=== PATIENT | female | born 1975 | race Caucasian/White ===

== ENCOUNTER → 2016-11-12 | Outpatient (CLI) | payer BC, OTHER ==
[~2016-11-12] MED LIST: /ESOM40CA; No Historical Meds
--- NOTE | 2016-11-12 15:08 | REP ---
PELVIC ULTRASOUND: Real-time sonographic evaluation of the pelvis is performed utilizing transabdominal and endovaginal technique. Comparison is made with a prior study of 05/12/2012. The bladder measures 9.4 x 5.9 x 10.3 cm. The uterus measures 7.4 x 4.9 x 5.2 cm. Endometrial thickness is 15 mm. There is no endometrial fluid collection. Right ovary measures 4.7 x 2.8 x 2.4 cm and the left ovary 4.7 x 1.5 x 2.1 cm. Paraovarian cyst on the right measures 2.9 x 1.0 x 1.9 cm. This appears to have been present on the prior study of 05/12/2012 and has increased in size, previously 17 x 10 mm. No torsion is seen of either ovary with blood flow seen in the ovaries with duplex Doppler evaluation, Ri, right ovary 0.56 and left ovary 0.69. There is mild free fluid. IMPRESSION: Mild increase in size of right paraovarian cyst as discussed in detail above when compared to the prior study of 05/12/2012. Mild free fluid. No torsion. Endometrial thickness 15 mm. Signed by Geoffrey Avalos MD 11/12/2016 08:03 P
== END ==
LOC: M RAD 12:34
PROVIDERS: ATTEND Family Medicine
DX: N92.0 Excessive and frequent menstruation with regular cycle (principal); N83.201 Unspecified ovarian cyst, right side

== ENCOUNTER → 2016-12-22 | Outpatient (REF) | payer OTHER ==
[~2016-12-22] MED LIST changes: +ACYC1CAP8 PO; +EPIP0.3I2 IM; +PANT40TA2 PO
[2016-12-22 13:02] LABS: MEAN CORPUSCULAR HEMOGLOBIN 33.6 pg (27.0-33.0); MEAN CORPUSCULAR HGB CONC 33.8 g/dl (32.0-36.5); MEAN CORPUSCULAR VOLUME 99.4 fl (80.0-96.0); RED CELL DISTRIBUTION WIDTH 11.9 % (11.5-14.5); WHITE BLOOD COUNT 4.7 K/mm3 (4.0-10.0)
[2016-12-22 13:32] LABS: ALBUMIN 4.1 GM/DL (3.2-5.2); ALBUMIN/GLOBULIN RATIO 1.21 (1.00-1.93); ALKALINE PHOSPHATASE 51 U/L (45-117); ALT/SGPT 23 U/L (12-78); ANION GAP 6 MEQ/L (8-16); AST/SGOT 14 U/L (15-37); BLOOD UREA NITROGEN 14 MG/DL (7-18); CALCIUM LEVEL 9.1 MG/DL (8.5-10.1); CARBON DIOXIDE LEVEL 30 MEQ/L (21-32); CHLORIDE LEVEL 102 MEQ/L (98-107); CHOLESTEROL LEVEL 189 MG/DL (<200); CREATININE FOR GFR 0.82 MG/DL (0.55-1.02); FERRITIN 29 NG/ML (8-252); GLOMERULAR FILTRATION RATE > 60.0 (>60); GLUCOSE, FASTING 91 MG/DL (70-105); POTASSIUM SERUM 3.9 MEQ/L (3.5-5.1); SODIUM LEVEL 138 MEQ/L (136-145); TOTAL PROTEIN 7.5 GM/DL (6.4-8.2); TRIGLYCERIDES LEVEL 58 MG/DL (<150)
== END ==
LOC: M SFHCCLAY 07:36
PROVIDERS: ATTEND Family Medicine
DX: Z00.00 Encounter for general adult medical examination without abnormal findings (principal); D50.8 Other iron deficiency anemias; E55.9 Vitamin D deficiency, unspecified; Z12.4 Encounter for screening for malignant neoplasm of cervix
CPT/HCPCS: 80053; 80061; 82306; 82728; 84443; 85027; G0123

== ENCOUNTER → 2016-12-31 | Day surgery (SDC) | payer BC, OTHER ==
[~2016-12-31] VITALS: Ht 152.4 cm; Wt 61.7 kg
[~2016-12-31] MED LIST changes: -ACYC1CAP8 PO; +ACYC200C8 PO; +HYDROmorphone HCL 1 MG/ML SYRINGE (J1170) IV PRN; +KETOROLAC 60 MG/2 ML VIAL (J1885) As Ordered ONE; +LIDOCAINE 1% SDV INJ 30 ML VIAL As Ordered ONE; +LR 1,000 ML IV ONE; +LR 1,000 ML IV SCH; +MIDAZOLAM INJ 2 MG/2 ML VIAL (J2250) As Ordered ONE; +ONDANSETRON 4MG/2ML VIAL (J2405) As Ordered ONE; +ONDANSETRON 4MG/2ML VIAL (J2405) IV PRN; +PERCOCET 5MG/325MG TAB PO PRN; +PROPOFOL 200 MG/20 ML VIAL As Ordered ONE; +dexameTHASONE 4 MG/ML 1ML VIAL (J1100) As Ordered ONE; +fentaNYL 100 MCG/2 ML INJECTION (J3010) As Ordered ONE; +fentaNYL 100 MCG/2 ML INJECTION (J3010) IV PRN
[2016-12-31 10:34] LABS: CONTROL LINE UCG INT CTR LINE PRESENT
[2016-12-31 14:25] VITALS: BP 106/66
--- NOTE | 2017-01-01 09:56 | RO ---
DATE OF PROCEDURE: 12/31/2016 PREPROCEDURE DIAGNOSES: Menorrhagia. POSTPROCEDURE DIAGNOSES: Menorrhagia. OPERATIVE PROCEDURES: Hysteroscopy, dilation and curettage (D and C), NovaSure endometrial ablation. SURGEON: Bryce Lund MD [facility] CERTIFIED CONCIERGE: ANESTHESIA: Local sedation. ESTIMATED BLOOD LOSS: Minimal. FINDINGS: Normal appearing endometrial cavity. DESCRIPTION OF PROCEDURE: The patient was taken to the operating room where IV sedation was given. She was prepped and draped in a sterile fashion in the dorsal lithotomy position. A speculum was placed in the vagina. The cervix was injected circumferentially with 22 mL of 1% lidocaine. The cervix was dilated with tapered dilators. A diagnostic hysteroscope using normal saline as a distention medium was placed through the internal os. Visualization of endometrial cavity revealed the findings noted above. Sharp curettage was performed. NovaSure device was assembled and in working order. The endometrial cavity length was 4.0 cm. NovaSure device was inserted and reached a width that was calculated at 3.5 cm total. Power setting was 79 ramirez. Successful cavity assessment was performed. Coagulation cycle was started. Total coagulation time was a minute 29 seconds. Device was removed. The hysteroscope was placed back into the endometrial cavity and excellent coagulation affects were noted throughout the endometrium. No evidence of injury to uterus. All instruments were removed. Sponge, instrument and needle counts were correct.
== END ==
LOC: M SDC 09:57
PROVIDERS: ATTEND Specialist
DX: N92.0 Excessive and frequent menstruation with regular cycle (principal); K58.9 Irritable bowel syndrome, unspecified; E55.9 Vitamin D deficiency, unspecified; D64.9 Anemia, unspecified; K22.70 Barrett's esophagus without dysplasia; K90.49 Malabsorption due to intolerance, not elsewhere classified; J45.909 Unspecified asthma, uncomplicated; Z79.899 Other long term (current) drug therapy; Z88.7 Allergy status to serum and vaccine; Z91.040 Latex allergy status
CPT/HCPCS: 36415; 58563; 84703; 85014; 85018; 88305; A4649; J1100; J1885; J2250; J2405; J3010

== ENCOUNTER → 2017-12-02 | Outpatient (CLI) | payer BC, OTHER | LOC: M RAD 12:06 | DX: Z80.3 Family history of malignant neoplasm of breast (principal) | CPT/HCPCS: C8908 ==

== ENCOUNTER → 2018-04-17 | Outpatient (REF) | payer OTHER ==
[2018-04-19 08:06] LABS: HERPES ZOSTER, VARICELLA IgG >4000 index (Immune >165)
== END ==
LOC: M SFHCCLAY 11:46
DX: Z78.9 Other specified health status (principal)

== ENCOUNTER → 2018-07-20 | Outpatient (REF) | payer OTHER ==
[~2018-07-20] MED LIST changes: -HYDROmorphone HCL 1 MG/ML SYRINGE (J1170) IV PRN; -KETOROLAC 60 MG/2 ML VIAL (J1885) As Ordered ONE; -LIDOCAINE 1% SDV INJ 30 ML VIAL As Ordered ONE; -LR 1,000 ML IV ONE; -LR 1,000 ML IV SCH; -MIDAZOLAM INJ 2 MG/2 ML VIAL (J2250) As Ordered ONE; -ONDANSETRON 4MG/2ML VIAL (J2405) As Ordered ONE; -ONDANSETRON 4MG/2ML VIAL (J2405) IV PRN; -PANT40TA2 PO; +PANT40TA3 PO; -PERCOCET 5MG/325MG TAB PO PRN; -PROPOFOL 200 MG/20 ML VIAL As Ordered ONE; -dexameTHASONE 4 MG/ML 1ML VIAL (J1100) As Ordered ONE; -fentaNYL 100 MCG/2 ML INJECTION (J3010) As Ordered ONE; -fentaNYL 100 MCG/2 ML INJECTION (J3010) IV PRN
[2018-07-20 11:16] LABS: HEMATOCRIT 36.2 % (36.0-47.0); HEMOGLOBIN 12.3 g/dl (12.0-15.5); MEAN CORPUSCULAR HEMOGLOBIN 33.2 pg (27.0-33.0); MEAN CORPUSCULAR VOLUME 97.6 fl (80.0-96.0); PLATELET COUNT, AUTOMATED 186 10^3/uL (150-450); RED BLOOD COUNT 3.71 10^6/uL (4.00-5.40); WHITE BLOOD COUNT 4.1 10^3/uL (4.0-10.0)
[2018-07-20 11:34] LABS: ALBUMIN 3.7 GM/DL (3.2-5.2); ALT/SGPT 33 U/L (12-78); BILIRUBIN,TOTAL 0.9 MG/DL (0.2-1.0); BLOOD UREA NITROGEN 15 MG/DL (7-18); CALCIUM LEVEL 8.7 MG/DL (8.5-10.1); CARBON DIOXIDE LEVEL 27 MEQ/L (21-32); CHLORIDE LEVEL 103 MEQ/L (98-107); CHOLESTEROL LEVEL 169 MG/DL (<200); CHOLESTEROL RISK RATIO 2.725 (<5); CREATININE FOR GFR 0.81 MG/DL (0.55-1.30); FERRITIN 44 NG/ML (8-252); GLOMERULAR FILTRATION RATE > 60.0 (>58); GLUCOSE, FASTING 84 MG/DL (70-100); HDL CHOLESTEROL 62 MG/DL (>40); LDL CHOLESTEROL 97 MG/DL (<100); NON-HDL-C 107 MG/DL; SODIUM LEVEL 140 MEQ/L (136-145); THYROID STIMULATING HORMONE 0.968 uIU/ML (0.358-3.740); TOTAL 25(OH) VITAMIN D 36.7 NG/ML (30.0-100.0); TRIGLYCERIDES LEVEL 50 MG/DL (<150)
== END ==
LOC: M SFHCCLAY 06:59
PROVIDERS: ATTEND Family Medicine
DX: D50.8 Other iron deficiency anemias (principal); E55.9 Vitamin D deficiency, unspecified; Z00.00 Encounter for general adult medical examination without abnormal findings; K22.710 Barrett's esophagus with low grade dysplasia

== ENCOUNTER → 2018-07-21 | Outpatient (REF) | payer OTHER ==
[2018-07-21 12:42] LABS: FOLATE > 24.0 NG/ML (>5.4); VITAMIN B12 LEVEL 612 PG/ML (247-911)
== END ==
LOC: M SFHCCLAY 08:51
PROVIDERS: ATTEND Family Medicine
DX: K22.70 Barrett's esophagus without dysplasia (principal); D75.89 Other specified diseases of blood and blood-forming organs

== ENCOUNTER → 2018-12-01 | Outpatient (CLI) | payer BC, OTHER ==
[~2018-12-01] MED LIST changes: -/ESOM40CA; +NEXI1CAP3; +PROHANCE 279.3MG/ML 15ML VIAL (A9576) As Ordered ONE
--- NOTE | 2018-12-01 14:38 | REP ---
Bilateral breast MRI study without and with IV gadolinium: History: Positive family history of breast cancer. High risk screening. Comparison study December 02, 2017. Technique: 3 Tamiko MRI imaging was performed with a dedicated breast coil. Axial, coronal, and sagittal T1 and T2-weighted scans were obtained with and without fat saturation in the usual fashion. The study includes dynamically acquired post gadolinium enhanced imaging subtraction imaging. Maximal intensity projection and multiplanar re-formation imaging is included as well. The study was interpreted with the aid of [employer], an FDA approved computer-aided detection (CAD) software program, on a dedicated breast MRI work station. The gadolinium enhancement dose is 12 ml of intravenous ProHance. Findings: There are scattered small subcentimeter cysts in each breast. A small sliver of pleural fluid is visible bilaterally. There are is a moderate pattern of fibroglandular tissue present bilaterally which is roughly symmetric. There are scattered foci of background parenchymal enhancement noted bilaterally. There is an irregularly marginated area of somewhat spiculated appearing enhancing tissue in the central aspect of the right breast middle third just below the plane of the nipple at approximately 5-6 o'clock which merits further evaluation. This shows prompt contrast enhancement and washout kinetics on dynamically acquired post contrast images. The enhancement pattern is new when compared to prior study. This lesion measures 7 mm in greatest diameter. No other suspicious area of enhancement and washout is seen on dynamically acquired post contrast images. No other suspicious morphologic abnormality is seen. Impression: Suspicious somewhat spiculated 7 mm focus of enhancement and washout kinetics in the central right breast at approximately 5 -6 o'clock position. This merits further evaluation. BIRADS category four suspicious breast MRI study. Recommend focused right breast sonography to be done at [facility] in my presence or that of my partner, Dr. Avalos who is familiar with these findings. If positive, ultrasound could be utilized to perform histologic sampling. If the ultrasound does not show a correlate target, MRI directed needle biopsy can be considered. Electronically Signed by Willie Mckeon MD 12/01/2018 02:29 P
== END ==
LOC: M RAD 09:32
PROVIDERS: ATTEND Internal Medicine Hematology & Oncology
DX: R92.8 Other abnormal and inconclusive findings on diagnostic imaging of breast (principal); Z80.3 Family history of malignant neoplasm of breast
CPT/HCPCS: A9576; C8908

== ENCOUNTER → 2018-12-27 | Outpatient (CLI) | payer BC, OTHER ==
[~2018-12-27] MED LIST changes: +LIDOCAINE 1% MDV 20ML VIAL As Ordered ONE
--- NOTE | 2018-12-27 16:28 | REP ---
Digital diagnostic unilateral right breast mammography with CAD: History: Clip marker placement views. The patient is immediately status post MR guided needle biopsy right breast. No comparison mammography is available. The indication for the biopsy was an enhancing area in MRI scan from December 01, 2018. Mammographic findings: Craniocaudad and mediolateral views the right breast demonstrate the marker clip in position in the central breast middle third medial to the plane of the nipple and slightly inferior. There is no evidence of hematoma. Impression: Marker clip placement mammography. Post MR guided needle biopsy procedure. No evidence of hematoma. Electronically Signed by Willie Mckeon MD 12/27/2018 04:36 P
--- NOTE | 2018-12-28 14:38 | REP ---
MRI guided needle biopsy right breast. This procedure is performed by Jaida Edmond [facility], under the personal supervision of Dr. Mckeon. History: Irregularly marginated area of somewhat spiculated appearing enhancing tissue in the central aspect of the right breast middle third on a MRI dated 12/01/2018. Procedure: The risks and benefits of the procedure were explained to the patient and informed consent was obtained both verbally and written. Directly prior to the start of the procedure, a formal timeout was done in the procedure room. The patient was placed prone on the MR imaging table in the breast imaging coiled and the right breast was compressed mildly. 20 ml of intravenous Gadolinium was administered. Fiducial marker localization, pre and two dynamic postcontrast T1-weighted fat sat sequences of the right breast were acquired. The [employer] system was deployed. The lesion was targeted on initial images and the lateral aspect of the skin was marked in the identified triangulated skin entry site. The lateral skin at the entry site was then prepped aseptically. 5 ml of 1% lidocaine was administered into the skin and breast parenchyma along the anticipated needle path. A skin edinson was performed. The 8 days and Mammotome suction assisted needle biopsy device was passed into the right breast tissue without significant difficulty. Through the back end of the Mammotome biopsied needle device a another 6 ml of 1% lidocaine was given. A series of six suction assisted breast biopsy cores were retrieved and were submitted in formalin for histological analysis. A marker clip was then deployed. Post biopsy imaging showed that clip placement a targeted. The patient tolerated the procedure well and there were no immediate complications. After the appropriate amount of monitored convalescence, the patient was discharged from the department. Impression: Technically successful MR guided needle biopsy for right breast lesion. Reviewed by IVIS Escalona 12/28/2018 10:21 A Electronically Signed by Willie Mckeon MD 12/28/2018 02:29 P
== END ==
LOC: M RADPRO 12:24
PROVIDERS: ATTEND Nurse Practitioner
DX: N60.11 Diffuse cystic mastopathy of right breast (principal); Z91.040 Latex allergy status; Z91.018 Allergy to other foods; Z88.7 Allergy status to serum and vaccine
CPT/HCPCS: 19085; 77065; 88305; A9576

== ENCOUNTER → 2019-05-07 | Outpatient (CLI) | payer BC ==
[~2019-05-07] MED LIST changes: -LIDOCAINE 1% MDV 20ML VIAL As Ordered ONE; -PROHANCE 279.3MG/ML 15ML VIAL (A9576) As Ordered ONE
--- NOTE | 2019-05-07 09:01 | REP ---
Two-view chest: 05/07/2019. Indication: Dyspnea. Cough. Comparison: None. Findings: The lungs are clear. There is no pleural effusion or pneumothorax. The cardiomediastinal silhouette is unremarkable. Impression: Clear lungs. Electronically Signed by Vivek Shearer DO 05/07/2019 08:53 A
== END ==
LOC: M CLY 07:18
PROVIDERS: ATTEND Family Medicine
DX: R05 Cough (principal); R06.00 Dyspnea, unspecified

== ENCOUNTER → 2019-05-22 | Outpatient (REF) | payer BC, OTHER | LOC: M LAB REF 13:20 | PROVIDERS: ATTEND Specialist | DX: Z12.4 Encounter for screening for malignant neoplasm of cervix (principal) | CPT/HCPCS: 87624; G0123 ==

== ENCOUNTER → 2019-07-24 | Outpatient (REF) | payer OTHER ==
[2019-07-24 11:27] LABS: HEMATOCRIT 39.2 % (36.0-47.0); HEMOGLOBIN 12.9 g/dl (12.0-15.5); MEAN CORPUSCULAR HEMOGLOBIN 32.3 pg (27.0-33.0); MEAN CORPUSCULAR HGB CONC 32.9 g/dl (32.0-36.5); MEAN CORPUSCULAR VOLUME 98.2 fl (80.0-96.0); PLATELET COUNT, AUTOMATED 207 10^3/uL (150-450); RED BLOOD COUNT 3.99 10^6/uL (4.00-5.40); WHITE BLOOD COUNT 3.6 10^3/uL (4.0-10.0)
[2019-07-24 11:48] LABS: ALBUMIN 3.9 GM/DL (3.2-5.2); ALT/SGPT 18 U/L (12-78); BILIRUBIN,TOTAL 0.6 MG/DL (0.2-1.0); BLOOD UREA NITROGEN 9 MG/DL (7-18); CALCIUM LEVEL 8.7 MG/DL (8.5-10.1); CARBON DIOXIDE LEVEL 31 MEQ/L (21-32); CHLORIDE LEVEL 102 MEQ/L (98-107); CHOLESTEROL LEVEL 192 MG/DL (<200); CHOLESTEROL RISK RATIO 3.047 (<5); CREATININE FOR GFR 0.75 MG/DL (0.55-1.30); GLOMERULAR FILTRATION RATE > 60.0 (>58); GLUCOSE, FASTING 83 MG/DL (70-100); HDL CHOLESTEROL 63 MG/DL (>40); LDL CHOLESTEROL 116 MG/DL (<100); NON-HDL-C 129 MG/DL; POTASSIUM SERUM 3.9 MEQ/L (3.5-5.1); SODIUM LEVEL 137 MEQ/L (136-145); THYROID STIMULATING HORMONE 0.732 uIU/ML (0.358-3.740); TOTAL PROTEIN 7.1 GM/DL (6.4-8.2); TRIGLYCERIDES LEVEL 65 MG/DL (<150)
[2019-07-24 11:49] LABS: FOLATE 8.6 NG/ML (>5.4); VITAMIN B12 LEVEL 686 PG/ML (247-911)
[2019-07-24 11:57] LABS: ERYTHROCYTE SEDIMENTATION RATE 11 mm/hr (0-20)
== END ==
LOC: M SFHCCLAY 07:05
PROVIDERS: ATTEND Family Medicine
DX: D50.8 Other iron deficiency anemias (principal); K58.9 Irritable bowel syndrome, unspecified; K22.710 Barrett's esophagus with low grade dysplasia; D75.89 Other specified diseases of blood and blood-forming organs; Z00.00 Encounter for general adult medical examination without abnormal findings

== ENCOUNTER → 2019-10-12 | Outpatient (CLI) | payer BC, OTHER | LOC: M LABSMTC 10:16 | PROVIDERS: ATTEND Family Medicine | DX: Z11.59 Encounter for screening for other viral diseases (principal); Z20.828 Contact with and (suspected) exposure to other viral communicable diseases ==

== ENCOUNTER → 2020-01-19 | Outpatient (CLI) | payer BC, OTHER ==
[~2020-01-19] MED LIST changes: +PANT40TA29 PO; -PANT40TA3 PO
== END ==
LOC: M LABSMTC 09:16
PROVIDERS: ATTEND Pediatrics
DX: Z11.59 Encounter for screening for other viral diseases (principal)
CPT/HCPCS: C9803; U0002

== ENCOUNTER → 2020-02-29 | Outpatient (REF) | payer OTHER | LOC: M LAB REF 17:55 | PROVIDERS: ATTEND Physician Assistant | DX: D16.5 Benign neoplasm of lower jaw bone (principal) ==

== ENCOUNTER → 2020-04-12 | Outpatient (CLI) | payer BC, OTHER | LOC: M LABSMTC 08:04 | PROVIDERS: ATTEND Family Medicine | DX: Z01.818 Encounter for other preprocedural examination (principal) | CPT/HCPCS: C9803; U0003 ==

== ENCOUNTER → 2020-07-30 | Outpatient (REF) | payer OTHER ==
[2020-07-30 11:47] LABS: BASO # 0.1 10^3/uL (0.0-0.2); BASO % 1.6 % (0.0-1.0); EOS # 0.1 10^3/uL (0.0-0.5); EOS % 2.3 % (0.0-3.0); HEMATOCRIT 36.6 % (36.0-47.0); HEMOGLOBIN 11.9 g/dl (12.0-15.5); LYMPH # 1.6 10^3/uL (1.5-5.0); LYMPH % 37.1 % (24.0-44.0); MEAN CORPUSCULAR HGB CONC 32.5 g/dl (32.0-36.5); MEAN CORPUSCULAR VOLUME 98.4 fl (80.0-96.0); MONO # 0.3 10^3/uL (0.0-0.8); MONO % 5.9 % (0.0-5.0); NEUTROPHILS # 2.3 10^3/uL (1.5-8.5); NEUTROPHILS % 52.9 % (36.0-66.0); PLATELET COUNT, AUTOMATED 211 10^3/uL (150-450); RED BLOOD COUNT 3.72 10^6/uL (4.00-5.40); WHITE BLOOD COUNT 4.4 10^3/uL (4.0-10.0)
[2020-07-30 12:57] LABS: ALBUMIN 4.1 GM/DL (3.2-5.2); ALT/SGPT 27 U/L (12-78); BILIRUBIN,TOTAL 0.8 MG/DL (0.2-1.0); BLOOD UREA NITROGEN 12 MG/DL (7-18); CALCIUM LEVEL 9.5 MG/DL (8.5-10.1); CARBON DIOXIDE LEVEL 31 MEQ/L (21-32); CHLORIDE LEVEL 103 MEQ/L (98-107); CHOLESTEROL LEVEL 198 MG/DL (<200); CHOLESTEROL RISK RATIO 3.046 (<5); CREATININE FOR GFR 0.76 MG/DL (0.55-1.30); FERRITIN 72 NG/ML (8-252); FREE T4 0.88 NG/DL (0.76-1.46); GLOMERULAR FILTRATION RATE > 60.0 (>58); GLUCOSE, FASTING 93 MG/DL (70-100); HDL CHOLESTEROL 65 MG/DL (>40); IRON (FE) 129 UG/DL (50-170); LDL CHOLESTEROL 121 MG/DL (<100); NON-HDL-C 133 MG/DL; PERCENT SATURATION 45.9 % (13.2-45.0); POTASSIUM SERUM 4.1 MEQ/L (3.5-5.1); SODIUM LEVEL 140 MEQ/L (136-145); THYROID STIMULATING HORMONE 0.956 uIU/ML (0.358-3.740); TOTAL IRON BINDING CAPACITY 281 UG/DL (250-450); TOTAL PROTEIN 6.9 GM/DL (6.4-8.2); TRIGLYCERIDES LEVEL 58 MG/DL (<150); VITAMIN B12 LEVEL 845 PG/ML (247-911)
== END ==
LOC: M SFHCCLAY 07:03
PROVIDERS: ATTEND Family Medicine
DX: K58.9 Irritable bowel syndrome, unspecified (principal); D50.8 Other iron deficiency anemias; K22.710 Barrett's esophagus with low grade dysplasia; K90.0 Celiac disease; Z00.01 Encounter for general adult medical examination with abnormal findings

== ENCOUNTER → 2020-08-15 | Outpatient (REF) | payer OTHER | LOC: M SFHCWAGY 17:00 | PROVIDERS: ATTEND Specialist | DX: Z01.419 Encounter for gynecological examination (general) (routine) without abnormal findings (principal) | CPT/HCPCS: 87624; G0123 ==

== ENCOUNTER → 2021-11-24 | Outpatient (REF) | payer OTHER ==
[2021-11-24 11:30] LABS: BASO % 0.9 % (0.0-1.0); EOS # 0.2 10^3/uL (0.0-0.5); EOS % 4.3 % (0.0-3.0); HEMATOCRIT 37.1 % (36.0-47.0); HEMOGLOBIN 12.1 g/dl (12.0-15.5); LYMPH # 1.5 10^3/uL (1.5-5.0); LYMPH % 33.9 % (24.0-44.0); MEAN CORPUSCULAR HEMOGLOBIN 32.6 pg (27.0-33.0); MEAN CORPUSCULAR HGB CONC 32.6 g/dl (32.0-36.5); MONO # 0.3 10^3/uL (0.0-0.8); MONO % 7.5 % (2.0-8.0); NEUTROPHILS # 2.3 10^3/uL (1.5-8.5); NEUTROPHILS % 53.2 % (36.0-66.0); PLATELET COUNT, AUTOMATED 185 10^3/uL (150-450); RED BLOOD COUNT 3.71 10^6/uL (4.00-5.40); WHITE BLOOD COUNT 4.4 10^3/uL (4.0-10.0)
[2021-11-24 12:19] LABS: ALBUMIN 3.8 GM/DL (3.2-5.2); ALT/SGPT 20 U/L (12-78); BILIRUBIN,TOTAL 0.7 MG/DL (0.2-1.0); BLOOD UREA NITROGEN 11 MG/DL (7-18); CALCIUM LEVEL 9.5 MG/DL (8.5-10.1); CARBON DIOXIDE LEVEL 30 MEQ/L (21-32); CHLORIDE LEVEL 103 MEQ/L (98-107); CHOLESTEROL LEVEL 175 MG/DL (<200); CHOLESTEROL RISK RATIO 2.651 (<5); CREATININE FOR GFR 0.74 MG/DL (0.55-1.30); FREE T4 0.87 NG/DL (0.76-1.46); GLOMERULAR FILTRATION RATE > 60.0 (>58); GLUCOSE, FASTING 86 MG/DL (70-100); HDL CHOLESTEROL 66 MG/DL (>40); LDL CHOLESTEROL 94 MG/DL (<100); NON-HDL-C 109 MG/DL; POTASSIUM SERUM 3.8 MEQ/L (3.5-5.1); SODIUM LEVEL 142 MEQ/L (136-145); THYROID STIMULATING HORMONE 0.769 uIU/ML (0.358-3.740); TOTAL 25(OH) VITAMIN D 25.1 NG/ML (30.0-100.0); TOTAL PROTEIN 6.7 GM/DL (6.4-8.2); TRIGLYCERIDES LEVEL 76 MG/DL (<150)
== END ==
LOC: M SFHCCLAY 06:55
PROVIDERS: ATTEND Family Medicine
DX: D50.8 Other iron deficiency anemias (principal); K22.710 Barrett's esophagus with low grade dysplasia; E55.9 Vitamin D deficiency, unspecified; D75.89 Other specified diseases of blood and blood-forming organs; J30.89 Other allergic rhinitis; Z00.00 Encounter for general adult medical examination without abnormal findings

== ENCOUNTER → 2022-01-01 | Outpatient (CLI) | payer BC, OTHER | LOC: M WHC 07:58 | PROVIDERS: ATTEND Specialist | DX: N83.201 Unspecified ovarian cyst, right side (principal) ==

== ENCOUNTER → 2022-02-07 | Outpatient (CLI) | payer BC, OTHER ==
[~2022-02-07] MED LIST changes: +CLAR10CA3 PO; +VITMTA PO
== END ==
LOC: M LABSMTC 08:52
PROVIDERS: ATTEND Anesthesiology
DX: Z01.818 Encounter for other preprocedural examination (principal); Z11.52 Encounter for screening for COVID-19

== ENCOUNTER 2022-02-12 12:27 | Day surgery (SDC) | payer BC, OTHER ==
[~2022-02-12] VITALS: Ht 152.4 cm; Wt 65.4 kg
[2022-02-12] MEDS ORDERED: LR 1,000 ML IV SCH (12:35)
[2022-02-12] MEDS ORDERED: LIDOCAINE 2% 100MG/5ML SDV (FOR ANES.) As Ordered ONE (12:50)
[2022-02-12] MEDS ORDERED: MIDAZOLAM INJ 2MG/2ML VIAL (J2250 PER 1MG) As Ordered ONE (12:50)
[2022-02-12] MEDS ORDERED: dexameTHASONE 4 MG/ML 1ML VIAL (J1100 PER 1MG) As Ordered ONE (12:50)
[2022-02-12] MEDS ORDERED: ONDANSETRON 4MG 2ML VIAL As Ordered ONE (12:50)
[2022-02-12] MEDS ORDERED: fentaNYL 100 MCG/2 ML INJECTION As Ordered ONE (12:50)
[2022-02-12] MEDS ORDERED: KETOROLAC 60MG 2ML VIAL As Ordered ONE (12:50)
[2022-02-12] MEDS ORDERED: propofoL 200 MG/20 ML VIAL As Ordered ONE (12:50)
[2022-02-12 12:58] LABS: HEMATOCRIT 37.3 % (36.0-47.0); HEMOGLOBIN 12.2 g/dl (12.0-15.5); MEAN CORPUSCULAR HEMOGLOBIN 33.2 pg (27.0-33.0); MEAN CORPUSCULAR HGB CONC 32.7 g/dl (32.0-36.5); MEAN CORPUSCULAR VOLUME 101.4 fl (80.0-96.0); RED BLOOD COUNT 3.68 10^6/uL (4.00-5.40); WHITE BLOOD COUNT 5.2 10^3/uL (4.0-10.0)
[2022-02-12] MEDS ORDERED: LIDOCAINE 1% MDV 20ML VIAL As Ordered ONE (13:59)
[2022-02-12] MEDS ORDERED: KETAMINE HCL 200 MG/20 ML VIAL As Ordered ONE (14:44)
[2022-02-12 15:06] VITALS: BP 128/57
== END 2022-02-12 15:19 | disposition home or self-care (01) ==
LOC: M SDC 12:27
PROVIDERS: ATTEND Specialist
DX: N84.0 Polyp of corpus uteri (principal); J45.909 Unspecified asthma, uncomplicated; E55.9 Vitamin D deficiency, unspecified; K58.9 Irritable bowel syndrome, unspecified; K22.70 Barrett's esophagus without dysplasia; B02.9 Zoster without complications; Z79.899 Other long term (current) drug therapy; Z88.7 Allergy status to serum and vaccine; Z91.018 Allergy to other foods; Z91.040 Latex allergy status
CPT/HCPCS: 36415; 58558; 81025; 85027; 88305; J1100; J1885; J2250; J3010

== ENCOUNTER → 2022-03-02 | Outpatient (REF) | payer OTHER | LOC: M PLALAB 11:50 | PROVIDERS: ATTEND Specialist | DX: Z01.419 Encounter for gynecological examination (general) (routine) without abnormal findings (principal) ==

== ENCOUNTER → 2022-04-05 | Outpatient (REF) ==
[2022-04-05 12:00] LABS: RSV AMPLIFICATION NEGATIVE (NEGATIVE)
== END ==
LOC: M EMP 09:37
PROVIDERS: ATTEND Family Medicine
DX: Z11.52 Encounter for screening for COVID-19 (principal)

== ENCOUNTER → 2022-07-19 | Outpatient (CLI) | payer BC | LOC: M CLY 06:58 | PROVIDERS: ATTEND Family Medicine | DX: R05.1 Acute cough (principal) ==

== ENCOUNTER → 2022-08-23 | Outpatient (REF) | payer OTHER, BC ==
[2022-08-23 11:59] LABS: BASO # 0.1 10^3/uL (0.0-0.2); BASO % 1.1 % (0.0-1.0); EOS # 0.1 10^3/uL (0.0-0.5); EOS % 2.4 % (0.0-3.0); HEMOGLOBIN 11.8 g/dl (12.0-15.5); LYMPH # 1.3 10^3/uL (1.5-5.0); LYMPH % 27.8 % (24.0-44.0); MEAN CORPUSCULAR HEMOGLOBIN 31.9 pg (27.0-33.0); MEAN CORPUSCULAR HGB CONC 31.9 g/dl (32.0-36.5); MONO # 0.3 10^3/uL (0.0-0.8); NEUTROPHILS # 2.9 10^3/uL (1.5-8.5); NEUTROPHILS % 62.3 % (36.0-66.0); PLATELET COUNT, AUTOMATED 217 10^3/uL (150-450); WHITE BLOOD COUNT 4.7 10^3/uL (4.0-10.0)
[2022-08-23 12:23] LABS: FREE T4 1.04 NG/DL (0.89-1.76)
[2022-08-23 12:24] LABS: THYROID STIMULATING HORMONE 1.085 uIU/ML (0.55-4.78)
[2022-08-23 12:26] LABS: ALBUMIN 3.8 G/DL (3.2-5.2); ALKALINE PHOSPHATASE 39 U/L (46-116); ALT/SGPT 17 U/L (7.0-40); AST/SGOT 18 U/L (<34); BILIRUBIN,TOTAL 0.7 MG/DL (0.3-1.2); BLOOD UREA NITROGEN 11 MG/DL (9-23); CALCIUM LEVEL 9.2 MG/DL (8.5-10.1); CARBON DIOXIDE LEVEL 30 MMOL/L (20-31); CHLORIDE LEVEL 104 MMOL/L (98-107); CHOLESTEROL LEVEL 173 MG/DL (<200); CHOLESTEROL RISK RATIO 2.89 (<5); CREATININE FOR GFR 0.69 MG/DL (0.55-1.30); GLOMERULAR FILTRATION RATE > 60.0 (>58); GLUCOSE, FASTING 89 MG/DL (60-100); HDL CHOLESTEROL 59.7 MG/DL (>40); LDL CHOLESTEROL 100.5 MG/DL (<100); NON-HDL-C 113 MG/DL; SODIUM LEVEL 140 MMOL/L (136-145); TOTAL PROTEIN 6.3 G/DL (5.7-8.2); TRIGLYCERIDES LEVEL 64 MG/DL (<150)
== END ==
LOC: M SFHCCLAY 11:10
PROVIDERS: ATTEND Family Medicine
DX: Z00.00 Encounter for general adult medical examination without abnormal findings (principal)

== ENCOUNTER → 2022-08-27 | Outpatient (REF) | payer OTHER ==
[2022-08-27 13:33] LABS: FOLATE 11.84 NG/ML (>5.4)
== END ==
LOC: M SFHCCLAY 08:31
PROVIDERS: ATTEND Family Medicine
DX: D75.89 Other specified diseases of blood and blood-forming organs (principal)

== ENCOUNTER → 2023-02-11 | Outpatient (REF) | payer OTHER | LOC: M SFHCDERM 17:28 | PROVIDERS: ATTEND Nurse Practitioner Family | DX: C44.91 Basal cell carcinoma of skin, unspecified (principal) ==

== ENCOUNTER 2023-05-04 08:34 | Emergency (ER) | payer BC, OTHER ==
[~2023-05-04] VITALS: Ht 152.4 cm; Wt 63.6 kg
[~2023-05-04 08:34] MED LIST changes: -BUPR300T92 PO
[2023-05-04] MEDS ORDERED: ONDANSETRON 4MG 2ML VIAL IV ONE (09:10)
[2023-05-04] MEDS ORDERED: NS 1,000 ML IV ONE (09:10)
[2023-05-04] MEDS ORDERED: MORPHINE 4 MG/ML 1ML VIAL IV ONE (09:10)
[2023-05-04 09:18] LABS: EOS # 0.1 10^3/uL (0.0-0.5); EOS % 1.5 % (0.0-3.0); HEMATOCRIT 37.9 % (36.0-47.0); HEMOGLOBIN 12.6 g/dl (12.0-15.5); LYMPH # 1.3 10^3/uL (1.5-5.0); LYMPH % 31.8 % (24.0-44.0); MEAN CORPUSCULAR HEMOGLOBIN 32.7 pg (27.0-33.0); MEAN CORPUSCULAR HGB CONC 33.2 g/dl (32.0-36.5); MEAN CORPUSCULAR VOLUME 98.4 fl (80.0-96.0); MONO # 0.2 10^3/uL (0.0-0.8); MONO % 5.3 % (2.0-8.0); NEUTROPHILS # 2.4 10^3/uL (1.5-8.5); NEUTROPHILS % 60.1 % (36.0-66.0); PLATELET COUNT, AUTOMATED 209 10^3/uL (150-450); RED BLOOD COUNT 3.85 10^6/uL (4.00-5.40)
[2023-05-04] MEDS ORDERED: BUPR300T92 PO (09:23)
[2023-05-04 09:42] LABS: LIPASE 39 U/L (12-53)
[2023-05-04 09:43] LABS: C REACTIVE PROTEIN QUANTITATIV < 0.40 MG/DL (<1.0)
[2023-05-04 09:44] LABS: ALBUMIN 4.2 G/DL (3.2-5.2); ALKALINE PHOSPHATASE 48 U/L (46-116); ALT/SGPT 14 U/L (7.0-40); AST/SGOT 15 U/L (<34); BILIRUBIN,DIRECT 0.2 MG/DL (<0.4); BILIRUBIN,TOTAL 0.8 MG/DL (0.3-1.2); BLOOD UREA NITROGEN 9 MG/DL (9-23); CALCIUM LEVEL 8.9 MG/DL (8.5-10.1); CARBON DIOXIDE LEVEL 28 MMOL/L (20-31); CHLORIDE LEVEL 103 MMOL/L (98-107); CREATININE FOR GFR 0.71 MG/DL (0.55-1.30); GLOMERULAR FILTRATION RATE > 60.0 (>58); GLUCOSE, FASTING 100 MG/DL (60-100); POTASSIUM SERUM 3.6 MMOL/L (3.5-5.1); SODIUM LEVEL 138 MMOL/L (136-145); TOTAL PROTEIN 7.2 G/DL (5.7-8.2)
[2023-05-04 09:45] LABS: HCG, SERUM QUALITATIVE NEGATIVE (NEGATIVE)
[2023-05-04] MEDS ORDERED: ISOVUE-370 76% 100ML VIAL As Ordered ONE (10:01)
[2023-05-04 10:49] VITALS: BP 102/55; TEMP 98.6; O2SAT 100
== END 2023-05-04 11:57 | disposition home or self-care (01) ==
LOC: M ED 08:34
DX: K52.9 Noninfective gastroenteritis and colitis, unspecified (principal); Z91.018 Allergy to other foods; Z91.040 Latex allergy status; Z88.7 Allergy status to serum and vaccine
CPT/HCPCS: 74177; 76856; 80048; 80076; 81001; 83605; 83690; 84703; 85025; 86140; 93976; 96361; 96374; 96375; 99284; J2405; Q9967

== ENCOUNTER → 2023-05-04 | Outpatient (REF) | payer OTHER ==
[~2023-05-04] MED LIST changes: +BUPR300T92 PO
== END ==
LOC: M SFHCCLAY 07:18
PROVIDERS: ATTEND Family Medicine
DX: Z53.29 Procedure and treatment not carried out because of patient's decision for other reasons (principal)

== ENCOUNTER → 2023-08-29 | Outpatient (REF) | payer OTHER ==
[~2023-08-29] MED LIST changes: +BUPR300T92 PO
[2023-08-29 12:30] LABS: HEMATOCRIT 35.7 % (36.0-47.0); HEMOGLOBIN 11.8 g/dl (12.0-15.5); MEAN CORPUSCULAR HEMOGLOBIN 32.9 pg (27.0-33.0); MEAN CORPUSCULAR HGB CONC 33.1 g/dl (32.0-36.5); MEAN CORPUSCULAR VOLUME 99.4 fl (80.0-96.0); PLATELET COUNT, AUTOMATED 215 10^3/uL (150-450); RED BLOOD COUNT 3.59 10^6/uL (4.00-5.40); WHITE BLOOD COUNT 3.7 10^3/uL (4.0-10.0)
[2023-08-29 12:38] LABS: ERYTHROCYTE SEDIMENTATION RATE 6 mm/hr (0-20)
[2023-08-29 12:57] LABS: FREE T4 0.97 NG/DL (0.89-1.76); THYROID STIMULATING HORMONE 1.109 uIU/ML (0.55-4.78)
[2023-08-29 12:59] LABS: TOTAL 25(OH) VITAMIN D 33.4 NG/ML (20.0-100.0)
[2023-08-29 13:00] LABS: CHOLESTEROL RISK RATIO 2.87 (<5); HDL CHOLESTEROL 61.2 MG/DL (>40); LDL CHOLESTEROL 103.8 MG/DL (<100); NON-HDL-C 114.8 MG/DL; PERCENT SATURATION 37.7 % (13.2-45.0)
== END ==
LOC: M SFHCCLAY 07:00
PROVIDERS: ATTEND Family Medicine
DX: D50.8 Other iron deficiency anemias (principal); K58.9 Irritable bowel syndrome, unspecified; K22.710 Barrett's esophagus with low grade dysplasia; D75.89 Other specified diseases of blood and blood-forming organs; Z00.00 Encounter for general adult medical examination without abnormal findings; Z00.01 Encounter for general adult medical examination with abnormal findings; N92.0 Excessive and frequent menstruation with regular cycle; K90.0 Celiac disease; E55.9 Vitamin D deficiency, unspecified; J30.89 Other allergic rhinitis

== ENCOUNTER → 2023-09-27 | Outpatient (REF) | payer OTHER | LOC: M SFHCCLAY 11:44 | PROVIDERS: ATTEND Family Medicine | DX: E83.118 Other hemochromatosis (principal) ==

== ENCOUNTER → 2024-02-01 | Outpatient (REF) ==
[~2024-02-01] MED LIST changes: +BUPR-597 PO; -BUPR300T92 PO
== END ==
LOC: M EMP 08:59
PROVIDERS: ATTEND Family Medicine
DX: Z11.52 Encounter for screening for COVID-19 (principal)

== ENCOUNTER 2024-04-16 12:40 | Emergency (ER) | payer BC, OTHER ==
[~2024-04-16] VITALS: Ht 152.4 cm; Wt 67.5 kg
[2024-04-16] MEDS: FLUORESCEIN OPHTH 1MG STRIP OD ONE (15:40)
[2024-04-16 15:58] LABS: BASO % 0.9 % (0.0-1.0); EOS % 0.9 % (0.0-3.0); HEMATOCRIT 36.8 % (36.0-47.0); HEMOGLOBIN 12.6 g/dl (12.0-15.5); LYMPH # 1.2 10^3/uL (1.5-5.0); LYMPH % 25.1 % (24.0-44.0); MEAN CORPUSCULAR HEMOGLOBIN 34.7 pg (27.0-33.0); MEAN CORPUSCULAR HGB CONC 34.2 g/dl (32.0-36.5); MEAN CORPUSCULAR VOLUME 101.4 fl (80.0-96.0); MONO # 0.3 10^3/uL (0.0-0.8); MONO % 7.2 % (2.0-8.0); NEUTROPHILS % 65.7 % (36.0-66.0); PLATELET COUNT, AUTOMATED 233 10^3/uL (150-450); RED BLOOD COUNT 3.63 10^6/uL (4.00-5.40); WHITE BLOOD COUNT 4.6 10^3/uL (4.0-10.0)
[2024-04-16 16:17] LABS: ERYTHROCYTE SEDIMENTATION RATE 8 mm/hr (0-20)
[2024-04-16 16:27] LABS: BLOOD UREA NITROGEN 11 MG/DL (9-23); CALCIUM LEVEL 9.3 MG/DL (8.5-10.1); CARBON DIOXIDE LEVEL 31 MMOL/L (20-31); CHLORIDE LEVEL 106 MMOL/L (98-107); GLOMERULAR FILTRATION RATE > 60.0 (>58); GLUCOSE, FASTING 95 MG/DL (60-100); POTASSIUM SERUM 3.8 MMOL/L (3.5-5.1); SODIUM LEVEL 141 MMOL/L (136-145)
[2024-04-16] MEDS: IBUPROFEN 600MG TAB PO ONE (16:57)
[2024-04-16] MEDS: ONDANSETRON 4MG 2ML VIAL IV ONE (16:57)
[2024-04-16 17:26] LABS: HCG, SERUM QUALITATIVE NEGATIVE (NEGATIVE)
[2024-04-16] MEDS: diphenhydrAMINE 50MG/ML VIAL IV ONE (17:32)
[2024-04-16] MEDS: NS 1,000 ML IV ONE (17:32)
[2024-04-16] MEDS ORDERED: PROHANCE 279.3MG/ML 15ML VIAL As Ordered ONE (18:35)
[2024-04-16 19:33] VITALS: BP 115/65; TEMP 98; O2SAT 98
[2024-04-16] MEDS ORDERED: MEDR4PAK PO (20:21)
[2024-04-20 20:48] LABS: LYME TOTAL ANTIBODY CIA <= 0.90 Index (<=0.90)
== END 2024-04-16 20:30 | disposition home or self-care (01) ==
LOC: M ED 12:40
DX: H02.401 Unspecified ptosis of right eyelid (principal); K21.9 Gastro-esophageal reflux disease without esophagitis; F41.9 Anxiety disorder, unspecified; Z91.040 Latex allergy status; Z88.7 Allergy status to serum and vaccine; Z91.018 Allergy to other foods; Z79.899 Other long term (current) drug therapy
CPT/HCPCS: 70450; 70544; 70553; 80048; 84703; 85025; 85652; 86618; 96361; 96374; 96375; 99284; A9576; J1100; J1200; J2405

== ENCOUNTER → 2024-04-18 | Outpatient (REF) | payer BC, OTHER ==
[~2024-04-18] MED LIST changes: +MEDR4PAK PO
[2024-04-18 20:02] LABS: FOLATE 5.8 NG/ML (>5.4); RHEUMATOID FACTOR QUANT 5.3 IU/ML (<14); THYROID STIMULATING HORMONE 2.039 uIU/ML (0.55-4.78)
== END ==
LOC: M LABDRAWC 16:47
PROVIDERS: ATTEND Psychiatry & Neurology Neurology
DX: H05.401 Unspecified enophthalmos, right eye (principal)

== ENCOUNTER → 2024-05-08 | Outpatient (CLI) | payer BC | LOC: M PLAIMG 13:07 | PROVIDERS: ATTEND Psychiatry & Neurology Neurology | DX: D15.0 Benign neoplasm of thymus (principal); H57.811 Brow ptosis, right; G70.01 Myasthenia gravis with (acute) exacerbation ==

== ENCOUNTER → 2024-07-05 | Outpatient (REF) | payer OTHER ==
[2024-07-05 17:51] LABS: BASO % 0.2 % (0.0-1.0); EOS % 0.1 % (0.0-3.0); HEMOGLOBIN 12.4 g/dl (12.0-15.5); LYMPH # 0.8 10^3/uL (1.5-5.0); LYMPH % 9.3 % (24.0-44.0); MEAN CORPUSCULAR HEMOGLOBIN 34.4 pg (27.0-33.0); MEAN CORPUSCULAR HGB CONC 33.5 g/dl (32.0-36.5); MEAN CORPUSCULAR VOLUME 102.8 fl (80.0-96.0); MONO # 0.2 10^3/uL (0.0-0.8); MONO % 2.1 % (2.0-8.0); NEUTROPHILS # 7.3 10^3/uL (1.5-8.5); NEUTROPHILS % 87.9 % (36.0-66.0); PLATELET COUNT, AUTOMATED 261 10^3/uL (150-450); WHITE BLOOD COUNT 8.3 10^3/uL (4.0-10.0)
[2024-07-05 18:23] LABS: ALBUMIN 3.8 G/DL (3.2-5.2); ALKALINE PHOSPHATASE 39 U/L (35-104); ALT/SGPT 24 U/L (7.0-40); AST/SGOT 19 U/L (<34); BILIRUBIN,TOTAL 0.5 MG/DL (0.3-1.2); BLOOD UREA NITROGEN 14 MG/DL (9-23); CALCIUM LEVEL 9.6 MG/DL (8.5-10.1); CARBON DIOXIDE LEVEL 32 MMOL/L (20-31); CHLORIDE LEVEL 105 MMOL/L (98-107); GLOMERULAR FILTRATION RATE > 60.0 (>58); GLUCOSE, FASTING 114 MG/DL (60-100); SODIUM LEVEL 141 MMOL/L (136-145); TOTAL PROTEIN 6.5 G/DL (5.7-8.2)
== END ==
LOC: M LABDRAWC 16:39
PROVIDERS: ATTEND Psychiatry & Neurology Neurology
DX: G70.00 Myasthenia gravis without (acute) exacerbation (principal)

== ENCOUNTER → 2024-07-16 | Outpatient (REF) | payer BC | LOC: M SFHCCLAY 16:37 | PROVIDERS: ATTEND Nurse Practitioner Family | DX: R50.9 Fever, unspecified (principal) ==

== ENCOUNTER → 2024-07-16 | Outpatient (CLI) | payer BC | LOC: M CLY 11:42 | PROVIDERS: ATTEND Nurse Practitioner Family | DX: R50.9 Fever, unspecified (principal); R06.02 Shortness of breath ==

== ENCOUNTER → 2024-07-16 | Outpatient (REF) | LOC: M EMPSKH 11:46 | PROVIDERS: ATTEND Family Medicine | DX: Z11.52 Encounter for screening for COVID-19 (principal) ==

== ENCOUNTER → 2024-08-07 | Outpatient (REF) | payer BC ==
[2024-08-07 12:33] LABS: BASO # 0.1 10^3/uL (0.0-0.2); BASO % 0.9 % (0.0-1.0); EOS # 0.1 10^3/uL (0.0-0.5); EOS % 1.9 % (0.0-3.0); HEMATOCRIT 35.9 % (36.0-47.0); HEMOGLOBIN 11.8 g/dl (12.0-15.5); LYMPH # 1.5 10^3/uL (1.5-5.0); LYMPH % 27.7 % (24.0-44.0); MEAN CORPUSCULAR HEMOGLOBIN 33.7 pg (27.0-33.0); MEAN CORPUSCULAR HGB CONC 32.9 g/dl (32.0-36.5); MEAN CORPUSCULAR VOLUME 102.6 fl (80.0-96.0); MONO # 0.4 10^3/uL (0.0-0.8); MONO % 7.1 % (2.0-8.0); NEUTROPHILS # 3.3 10^3/uL (1.5-8.5); PLATELET COUNT, AUTOMATED 239 10^3/uL (150-450); WHITE BLOOD COUNT 5.4 10^3/uL (4.0-10.0)
[2024-08-07 12:40] LABS: ALBUMIN 3.5 G/DL (3.2-5.2); ALKALINE PHOSPHATASE 40 U/L (35-104); ALT/SGPT 17 U/L (7.0-40); AST/SGOT 12 U/L (<34); BILIRUBIN,TOTAL 0.5 MG/DL (0.3-1.2); BLOOD UREA NITROGEN 13 MG/DL (9-23); CALCIUM LEVEL 8.8 MG/DL (8.5-10.1); CARBON DIOXIDE LEVEL 32 MMOL/L (20-31); CHLORIDE LEVEL 103 MMOL/L (98-107); CREATININE FOR GFR 0.83 MG/DL (0.55-1.30); GLOMERULAR FILTRATION RATE > 60.0 (>58); GLUCOSE, FASTING 78 MG/DL (60-100); POTASSIUM SERUM 3.5 MMOL/L (3.5-5.1); SODIUM LEVEL 143 MMOL/L (136-145); TOTAL PROTEIN 6.2 G/DL (5.7-8.2)
== END ==
LOC: M LABDRAWC 11:24
PROVIDERS: ATTEND Psychiatry & Neurology Neurology
DX: H02.409 Unspecified ptosis of unspecified eyelid (principal)

== ENCOUNTER → 2024-11-06 | Outpatient (REF) | payer BC ==
[~2024-11-06] MED LIST changes: -BUPR-597 PO; +BUPR-766 PO
[2024-11-06 14:46] LABS: ALBUMIN 3.9 G/DL (3.2-5.2); ALKALINE PHOSPHATASE 46 U/L (35-104); ALT/SGPT 24 U/L (7.0-40); AST/SGOT 17 U/L (<34); BILIRUBIN,TOTAL 0.8 MG/DL (0.3-1.2); BLOOD UREA NITROGEN 14 MG/DL (9-23); CALCIUM LEVEL 8.8 MG/DL (8.5-10.1); CARBON DIOXIDE LEVEL 29 MMOL/L (20-31); CHLORIDE LEVEL 103 MMOL/L (98-107); GLOMERULAR FILTRATION RATE > 90.0 (>58); GLUCOSE, FASTING 85 MG/DL (60-100); POTASSIUM SERUM 3.8 MMOL/L (3.5-5.1); SODIUM LEVEL 139 MMOL/L (136-145); TOTAL PROTEIN 6.7 G/DL (5.7-8.2)
[2024-11-06 14:48] LABS: BASO % 0.8 % (0.0-1.0); EOS # 0.1 10^3/uL (0.0-0.5); EOS % 1.7 % (0.0-3.0); HEMATOCRIT 37.8 % (36.0-47.0); HEMOGLOBIN 12.7 g/dl (12.0-15.5); LYMPH # 1.2 10^3/uL (1.5-5.0); LYMPH % 25.4 % (24.0-44.0); MEAN CORPUSCULAR HEMOGLOBIN 34.7 pg (27.0-33.0); MEAN CORPUSCULAR HGB CONC 33.6 g/dl (32.0-36.5); MEAN CORPUSCULAR VOLUME 103.3 fl (80.0-96.0); MONO # 0.3 10^3/uL (0.0-0.8); MONO % 6.9 % (2.0-8.0); NEUTROPHILS # 3.1 10^3/uL (1.5-8.5); PLATELET COUNT, AUTOMATED 206 10^3/uL (150-450); RED BLOOD COUNT 3.66 10^6/uL (4.00-5.40); WHITE BLOOD COUNT 4.8 10^3/uL (4.0-10.0)
== END ==
LOC: M LABDRAWC 14:00
PROVIDERS: ATTEND Psychiatry & Neurology Neurology
DX: G70.00 Myasthenia gravis without (acute) exacerbation (principal); H05.409 Unspecified enophthalmos, unspecified eye

== ENCOUNTER → 2024-11-06 | Outpatient (REF) | payer BC ==
[2024-11-06 12:53] LABS: CHOLESTEROL RISK RATIO 2.55 (<5); HDL CHOLESTEROL 82.6 MG/DL (>40); LDL CHOLESTEROL 105.2 MG/DL (<100); NON-HDL-C 128.4 MG/DL; PERCENT SATURATION 36.3 % (13.2-45.0)
[2024-11-06 12:55] LABS: FREE T4 1.21 NG/DL (0.89-1.76); THYROID STIMULATING HORMONE 0.976 uIU/ML (0.55-4.78)
[2024-11-06 12:56] LABS: FERRITIN 60.4 NG/ML (7.3-270.7)
== END ==
LOC: M SFHCCLAY 06:48
PROVIDERS: ATTEND Nurse Practitioner Family
DX: D50.8 Other iron deficiency anemias (principal); K22.710 Barrett's esophagus with low grade dysplasia; E55.9 Vitamin D deficiency, unspecified; K90.0 Celiac disease; G70.00 Myasthenia gravis without (acute) exacerbation

== ENCOUNTER 2025-01-07 07:48 | Outpatient (CLI) | payer BC ==
[~2025-01-07] VITALS: Ht 152.4 cm; Wt 67.0 kg
[~2025-01-07 07:48] MED LIST changes: +ALBUTEROL SULFATE 2.5 MG/0.5 ML INH CONCENTRATE NEB SOLN INH PRN; +EPINEPHrine INJ 1 MG/ML 1ML AMP IM PRN; +diphenhydrAMINE 50 MG/ML VIAL IV PRN
[2025-01-07 08:05] VITALS: BP 119/76; O2SAT 99
[2025-01-07] MEDS ORDERED: VALA1TAB5 PO (08:11)
[2025-01-07] MEDS ORDERED: PRED5CON PO (08:12)
[2025-01-07] MEDS ORDERED: METH2.5T48 PO (08:13)
[2025-01-07] MEDS ORDERED: CELL500T PO (08:14)
[2025-01-07] MEDS: ACETAMINOPHEN 650 MG PO ONE (08:45)
[2025-01-07] MEDS ORDERED: NS (Normal Saline) 0.9% 1,000 ML IV SCH (09:00)
[2025-01-07] MEDS: IMMUNE GLOBULIN 10% 20 GM in IV 1 EA IV ONE (09:16)
[2025-01-07] MEDS: IMMUNE GLOBULIN 10% 5 GM in IV 1 EA IV ONE (09:21)
[2025-01-07 09:55] VITALS: BP 102/58; O2SAT 98
[2025-01-07 11:18] VITALS: BP 96/52; O2SAT 98
[2025-01-07 12:45] VITALS: BP 117/59; O2SAT 100
== END 2025-01-07 12:45 | disposition home or self-care (01) ==
LOC: M INFU 07:48
PROVIDERS: ATTEND Psychiatry & Neurology Neuromuscular Medicine
DX: G70.00 Myasthenia gravis without (acute) exacerbation (principal); Z88.7 Allergy status to serum and vaccine; Z91.040 Latex allergy status; Z91.018 Allergy to other foods
CPT/HCPCS: 96365; 96366; J1459

== ENCOUNTER 2025-01-08 08:25 | Outpatient (CLI) | payer BC ==
[~2025-01-08] VITALS: Ht 152.4 cm; Wt 66.8 kg
[~2025-01-08 08:25] MED LIST changes: +CELL500T PO; +METH2.5T48 PO; +PRED5CON PO; +VALA1TAB5 PO
[2025-01-08 08:55] VITALS: BP_SYST 134; O2SAT 100
[2025-01-08] MEDS ORDERED: ACETAMINOPHEN 650 MG PO ONE (09:00)
[2025-01-08] MEDS: IMMUNE GLOBULIN 10% 20 GM in IV 1 EA IV ONE (09:18)
[2025-01-08] MEDS: IMMUNE GLOBULIN 10% 5 GM in IV 1 EA IV ONE (09:18)
[2025-01-08 09:45] VITALS: BP 123/56; O2SAT 100
[2025-01-08 10:15] VITALS: BP 107/62; O2SAT 100
[2025-01-08 10:45] VITALS: BP 111/80; O2SAT 100
[2025-01-08 11:45] VITALS: BP 110/71; O2SAT 100
[2025-01-08 12:10] VITALS: BP 115/65; O2SAT 100
== END 2025-01-08 12:15 ==
LOC: M INFU 08:25
PROVIDERS: ATTEND Psychiatry & Neurology Neuromuscular Medicine
DX: G70.00 Myasthenia gravis without (acute) exacerbation (principal); Z88.7 Allergy status to serum and vaccine; Z91.040 Latex allergy status; Z91.018 Allergy to other foods
CPT/HCPCS: 96365; 96366; J1459

== ENCOUNTER 2025-01-09 06:28 | Outpatient (CLI) | payer BC ==
[~2025-01-09] VITALS: Ht 152.4 cm; Wt 67.0 kg
[~2025-01-09 06:28] MED LIST changes: -ALBUTEROL SULFATE 2.5 MG/0.5 ML INH CONCENTRATE NEB SOLN INH PRN; -EPINEPHrine INJ 1 MG/ML 1ML AMP IM PRN; -diphenhydrAMINE 50 MG/ML VIAL IV PRN
[2025-01-09] MEDS: ACETAMINOPHEN 650 MG PO ONE (06:50)
[2025-01-09 06:53] VITALS: BP 121/60; O2SAT 98
[2025-01-09] MEDS ORDERED: EPINEPHrine INJ 1 MG/ML 1ML AMP IM PRN (07:01)
[2025-01-09] MEDS ORDERED: diphenhydrAMINE 50 MG/ML VIAL IV PRN (07:01)
[2025-01-09] MEDS ORDERED: ALBUTEROL SULFATE 2.5 MG/0.5 ML INH CONCENTRATE NEB SOLN INH PRN (07:01)
[2025-01-09] MEDS: IMMUNE GLOBULIN 10% 20 GM in IV 1 EA IV ONE (07:36)
[2025-01-09] MEDS: IMMUNE GLOBULIN 10% 5 GM in IV 1 EA IV ONE (07:37)
[2025-01-09 08:00] VITALS: BP 100/51; O2SAT 99
[2025-01-09 08:30] VITALS: BP 95/52; O2SAT 99
[2025-01-09 09:02] VITALS: BP 93/55; O2SAT 99
== END 2025-01-09 10:20 ==
LOC: M INFU 06:28
PROVIDERS: ATTEND Psychiatry & Neurology Neuromuscular Medicine
DX: G70.00 Myasthenia gravis without (acute) exacerbation (principal); Z88.7 Allergy status to serum and vaccine; Z91.040 Latex allergy status; Z91.018 Allergy to other foods
CPT/HCPCS: 96365; 96366; J1459

== ENCOUNTER 2025-01-10 07:06 | Outpatient (CLI) | payer BC ==
[~2025-01-10] VITALS: Ht 152.4 cm; Wt 67.0 kg
[~2025-01-10 07:06] MED LIST changes: +ALBUTEROL SULFATE 2.5 MG/0.5 ML INH CONCENTRATE NEB SOLN INH PRN; +EPINEPHrine INJ 1 MG/ML 1ML AMP IM PRN; +diphenhydrAMINE 50 MG/ML VIAL IV PRN
[2025-01-10] MEDS: ACETAMINOPHEN 650 MG PO ONE (07:07)
[2025-01-10 07:22] VITALS: BP 123/77; O2SAT 100
[2025-01-10] MEDS ORDERED: NS (Normal Saline) 0.9% 1,000 ML IV SCH (07:30)
[2025-01-10] MEDS: IMMUNE GLOBULIN 10% 20 GM in IV 1 EA IV ONE (07:41)
[2025-01-10] MEDS: IMMUNE GLOBULIN 10% 5 GM in IV 1 EA IV ONE (07:41)
[2025-01-10 08:15] VITALS: BP 99/59; O2SAT 99
[2025-01-10 08:45] VITALS: BP 103/59; O2SAT 100
[2025-01-10 09:15] VITALS: BP 111/64; O2SAT 100
[2025-01-10 10:15] VITALS: BP 109/70; O2SAT 100
== END 2025-01-10 10:30 ==
LOC: M INFU 07:06
PROVIDERS: ATTEND Psychiatry & Neurology Neuromuscular Medicine
DX: G70.00 Myasthenia gravis without (acute) exacerbation (principal); Z88.7 Allergy status to serum and vaccine; Z91.040 Latex allergy status; Z91.018 Allergy to other foods
CPT/HCPCS: 96365; 96366; J1459

== ENCOUNTER 2025-01-11 06:28 | Outpatient (CLI) | payer BC ==
[~2025-01-11] VITALS: Ht 152.4 cm; Wt 67.0 kg
[~2025-01-11 06:28] MED LIST changes: -ALBUTEROL SULFATE 2.5 MG/0.5 ML INH CONCENTRATE NEB SOLN INH PRN; -EPINEPHrine INJ 1 MG/ML 1ML AMP IM PRN; +NS (Normal Saline) 0.9% 1,000 ML IV SCH; -diphenhydrAMINE 50 MG/ML VIAL IV PRN
[2025-01-11 06:45] VITALS: BP 114/56; O2SAT 100
[2025-01-11] MEDS ORDERED: ACETAMINOPHEN 650MG PO PRIOR TO INFUSION PO ONE (07:00)
[2025-01-11] MEDS ORDERED: diphenhydrAMINE 50MG PO PRIOR TO INFUSION PO ONE (07:00)
[2025-01-11] MEDS ORDERED: ALBUTEROL SULFATE 2.5 MG/0.5 ML INH CONCENTRATE NEB SOLN INH PRN (07:01)
[2025-01-11] MEDS ORDERED: diphenhydrAMINE 50 MG/ML VIAL IV PRN (07:01)
[2025-01-11] MEDS ORDERED: EPINEPHrine INJ 1 MG/ML 1ML AMP IM PRN (07:01)
[2025-01-11] MEDS: IMMUNE GLOBULIN 10% 5 GM in IV 1 EA IV ONE (07:11)
[2025-01-11] MEDS: IMMUNE GLOBULIN 10% 20 GM in IV 1 EA IV ONE (07:11)
[2025-01-11 08:15] VITALS: BP 99/56; O2SAT 100
[2025-01-11 08:45] VITALS: BP 98/53; O2SAT 99
[2025-01-11 09:45] VITALS: BP 113/59; O2SAT 100
== END 2025-01-11 09:55 ==
LOC: M INFU 06:28
DX: G70.00 Myasthenia gravis without (acute) exacerbation (principal); Z88.7 Allergy status to serum and vaccine; Z91.040 Latex allergy status; Z91.018 Allergy to other foods
CPT/HCPCS: 96365; 96366; J1459

== ENCOUNTER 2025-02-04 07:33 | Outpatient (CLI) | payer BC ==
[~2025-02-04 07:33] MED LIST changes: +ALBUTEROL SULFATE 2.5 MG/0.5 ML INH CONCENTRATE NEB SOLN INH PRN; +EPINEPHrine INJ 1 MG/ML 1ML AMP IM PRN; +diphenhydrAMINE 50 MG/ML VIAL IV PRN
[2025-02-04] MEDS: ACETAMINOPHEN 650MG PO PRIOR TO INFUSION PO ONE (08:11)
[2025-02-04] MEDS: diphenhydrAMINE 50MG PO PRIOR TO INFUSION PO ONE (08:11)
[2025-02-04] MEDS: IMMUNE GLOBULIN 10% 20 GM in IV 1 EA IV ONE (08:13)
[2025-02-04] MEDS: IMMUNE GLOBULIN 10% 5 GM in IV 1 EA IV ONE (08:14)
[2025-02-04 08:23] VITALS: BP 117/60; O2SAT 100
[2025-02-04 09:00] VITALS: BP 100/61; O2SAT 99
[2025-02-04 09:30] VITALS: BP 98/54; O2SAT 98
[2025-02-04 10:00] VITALS: BP 100/64; O2SAT 97
[2025-02-04 10:30] VITALS: BP 113/66; O2SAT 100
== END 2025-02-04 10:40 | disposition home or self-care (01) ==
LOC: M INFU 07:33
PROVIDERS: ATTEND Psychiatry & Neurology Neuromuscular Medicine
DX: G70.00 Myasthenia gravis without (acute) exacerbation (principal); Z88.7 Allergy status to serum and vaccine; Z91.018 Allergy to other foods; Z91.040 Latex allergy status
CPT/HCPCS: 96365; 96366; J1459

== ENCOUNTER 2025-02-05 07:26 | Outpatient (CLI) | payer BC ==
[~2025-02-05] VITALS: Ht 152.4 cm; Wt 64.5 kg
[2025-02-05] MEDS: ACETAMINOPHEN 650MG PO PRIOR TO INFUSION PO ONE (07:45)
[2025-02-05] MEDS: diphenhydrAMINE 50MG PO PRIOR TO INFUSION PO ONE (07:45)
[2025-02-05] MEDS: IMMUNE GLOBULIN 10% 5 GM in IV 1 EA IV ONE (07:54)
[2025-02-05] MEDS: IMMUNE GLOBULIN 10% 20 GM in IV 1 EA IV ONE (07:54)
[2025-02-05 08:03] VITALS: BP 124/68; O2SAT 99
[2025-02-05 08:30] VITALS: BP 100/69; O2SAT 100
[2025-02-05 09:00] VITALS: BP 107/78; O2SAT 100
[2025-02-05 09:30] VITALS: BP 111/71; O2SAT 100
[2025-02-05 10:50] VITALS: BP 116/65; O2SAT 100
== END 2025-02-05 10:55 | disposition home or self-care (01) ==
LOC: M INFU 07:26
PROVIDERS: ATTEND Psychiatry & Neurology Neuromuscular Medicine
DX: G70.00 Myasthenia gravis without (acute) exacerbation (principal); Z91.018 Allergy to other foods; Z91.040 Latex allergy status; Z88.7 Allergy status to serum and vaccine
CPT/HCPCS: 96365; 96366; J1459

== ENCOUNTER 2025-02-06 08:23 | Outpatient (CLI) | payer BC ==
[~2025-02-06] VITALS: Ht 152.4 cm; Wt 64.5 kg
[~2025-02-06 08:23] MED LIST changes: +ACETAMINOPHEN 650MG PO PRIOR TO INFUSION PO ONE; +diphenhydrAMINE 50MG PO PRIOR TO INFUSION PO ONE
[2025-02-06 08:25] VITALS: BP 126/73; O2SAT 100
[2025-02-06] MEDS: IMMUNE GLOBULIN 10% 5 GM in IV 1 EA IV ONE (08:40)
[2025-02-06] MEDS: IMMUNE GLOBULIN 10% 20 GM in IV 1 EA IV ONE (08:41)
[2025-02-06 09:00] VITALS: BP 122/70; O2SAT 99
[2025-02-06 09:30] VITALS: BP 109/63; O2SAT 100
[2025-02-06 10:00] VITALS: BP 112/70; O2SAT 100
[2025-02-06 11:17] VITALS: BP 118/72; O2SAT 100
== END 2025-02-06 11:20 ==
LOC: M INFU 08:23
PROVIDERS: ATTEND Psychiatry & Neurology Neuromuscular Medicine
DX: G70.00 Myasthenia gravis without (acute) exacerbation (principal); Z88.7 Allergy status to serum and vaccine; Z91.018 Allergy to other foods; Z91.040 Latex allergy status
CPT/HCPCS: 96365; 96366; J1459

== ENCOUNTER 2025-02-07 07:51 | Outpatient (CLI) | payer BC ==
[~2025-02-07] VITALS: Ht 152.4 cm; Wt 65.0 kg
[~2025-02-07 07:51] MED LIST changes: -ACETAMINOPHEN 650MG PO PRIOR TO INFUSION PO ONE; -diphenhydrAMINE 50MG PO PRIOR TO INFUSION PO ONE
[2025-02-07 08:00] VITALS: BP 122/71; O2SAT 100
[2025-02-07] MEDS: IMMUNE GLOBULIN 10% 20 GM in IV 1 EA IV ONE (08:28)
[2025-02-07] MEDS: IMMUNE GLOBULIN 10% 5 GM in IV 1 EA IV ONE (08:29)
[2025-02-07] MEDS ORDERED: ACETAMINOPHEN 650MG PO PRIOR TO INFUSION PO ONE (08:30)
[2025-02-07] MEDS ORDERED: diphenhydrAMINE 50MG PO PRIOR TO INFUSION PO ONE (08:30)
[2025-02-07 09:00] VITALS: BP 112/68; O2SAT 100
[2025-02-07 09:30] VITALS: BP 113/74; O2SAT 100
[2025-02-07 10:00] VITALS: BP 120/81; O2SAT 100
[2025-02-07 11:10] VITALS: BP 112/69; O2SAT 97
== END 2025-02-07 11:10 ==
LOC: M INFU 07:51
PROVIDERS: ATTEND Psychiatry & Neurology Neuromuscular Medicine
DX: G70.00 Myasthenia gravis without (acute) exacerbation (principal); Z88.7 Allergy status to serum and vaccine; Z91.040 Latex allergy status; Z91.018 Allergy to other foods
CPT/HCPCS: 96365; 96366; J1459

== ENCOUNTER 2025-02-08 07:52 | Outpatient (CLI) | payer BC ==
[~2025-02-08 07:52] MED LIST changes: -NS (Normal Saline) 0.9% 1,000 ML IV SCH
[2025-02-08 08:05] VITALS: BP 115/79; O2SAT 100
[2025-02-08] MEDS: IMMUNE GLOBULIN 10% 20 GM in IV 1 EA IV ONE (08:17)
[2025-02-08] MEDS: IMMUNE GLOBULIN 10% 5 GM in IV 1 EA IV ONE (08:18)
[2025-02-08] MEDS ORDERED: ACETAMINOPHEN 650 MG PO ONE (08:30)
[2025-02-08 09:15] VITALS: BP 117/68; O2SAT 100
[2025-02-08 11:00] VITALS: BP 119/66; O2SAT 100
== END 2025-02-08 11:00 | disposition home or self-care (01) ==
LOC: M INFU 07:52
PROVIDERS: ATTEND Psychiatry & Neurology Neuromuscular Medicine
DX: G70.00 Myasthenia gravis without (acute) exacerbation (principal); Z88.7 Allergy status to serum and vaccine; Z91.040 Latex allergy status; Z91.018 Allergy to other foods
CPT/HCPCS: 96365; 96366; J1459

== ENCOUNTER 2025-03-04 08:03 | Outpatient (CLI) | payer BC ==
[~2025-03-04] VITALS: Ht 152.4 cm; Wt 66.0 kg
[~2025-03-04 08:03] MED LIST changes: +ACETAMINOPHEN 650 MG PO ONE; +ACYC200C10 PO; -ACYC200C8 PO; +NS (Normal Saline) 0.9% 1,000 ML IV SCH
[2025-03-04 08:10] VITALS: BP 115/66; O2SAT 100
[2025-03-04] MEDS: IMMUNE GLOBULIN 10% 20 GM in IV 1 EA IV ONE (08:25)
[2025-03-04] MEDS: IMMUNE GLOBULIN 10% 5 GM in IV 1 EA IV ONE (08:26)
[2025-03-04 08:57] VITALS: BP 106/62; O2SAT 98
[2025-03-04 09:25] VITALS: BP 121/54; O2SAT 100
[2025-03-04 09:54] VITALS: BP 99/57; O2SAT 100
[2025-03-04 11:04] VITALS: BP 100/59; O2SAT 100
== END 2025-03-04 11:05 | disposition home or self-care (01) ==
LOC: M INFU 08:03
PROVIDERS: ATTEND Psychiatry & Neurology Neuromuscular Medicine
DX: G70.00 Myasthenia gravis without (acute) exacerbation (principal); Z88.7 Allergy status to serum and vaccine; Z91.018 Allergy to other foods; Z91.040 Latex allergy status
CPT/HCPCS: 96365; 96366; J1459

== ENCOUNTER 2025-03-05 08:00 | Outpatient (CLI) | payer BC ==
[~2025-03-05] VITALS: Ht 152.4 cm; Wt 64.5 kg
[~2025-03-05 08:00] MED LIST changes: -ACETAMINOPHEN 650 MG PO ONE
[2025-03-05 08:15] VITALS: BP 113/67; O2SAT 100
[2025-03-05] MEDS: ACETAMINOPHEN 650 MG PO ONE (08:37)
[2025-03-05] MEDS: IMMUNE GLOBULIN 10% 20 GM in IV 1 EA IV ONE (08:41)
[2025-03-05] MEDS: IMMUNE GLOBULIN 10% 5 GM in IV 1 EA IV ONE (08:42)
[2025-03-05 09:10] VITALS: BP 110/69; O2SAT 100
[2025-03-05 09:40] VITALS: BP 96/54; O2SAT 99
[2025-03-05 10:10] VITALS: BP 101/66; O2SAT 99
[2025-03-05 11:15] VITALS: BP 108/63; O2SAT 100
== END 2025-03-05 11:23 ==
LOC: M INFU 08:00
PROVIDERS: ATTEND Psychiatry & Neurology Neuromuscular Medicine
DX: G70.00 Myasthenia gravis without (acute) exacerbation (principal); Z88.7 Allergy status to serum and vaccine; Z91.040 Latex allergy status; Z91.018 Allergy to other foods
CPT/HCPCS: 96365; 96366; J1459

== ENCOUNTER 2025-03-06 07:40 | Outpatient (CLI) | payer BC ==
[~2025-03-06] VITALS: Ht 152.4 cm; Wt 64.5 kg
[~2025-03-06 07:40] MED LIST changes: -NS (Normal Saline) 0.9% 1,000 ML IV SCH
[2025-03-06] MEDS ORDERED: ACETAMINOPHEN 650 MG PO ONE (08:00)
[2025-03-06] MEDS ORDERED: NS (Normal Saline) 0.9% 1,000 ML IV SCH (08:00)
[2025-03-06] MEDS: IMMUNE GLOBULIN 10% 20 GM in IV 1 EA IV ONE (08:21)
[2025-03-06] MEDS: IMMUNE GLOBULIN 10% 5 GM in IV 1 EA IV ONE (08:22)
[2025-03-06 08:45] VITALS: BP 92/54; O2SAT 98
[2025-03-06 09:15] VITALS: BP 100/59; O2SAT 97
[2025-03-06 09:45] VITALS: BP 111/64; O2SAT 99
[2025-03-06 10:55] VITALS: BP 119/72; O2SAT 100
== END 2025-03-06 10:55 | disposition home or self-care (01) ==
LOC: M INFU 07:40
PROVIDERS: ATTEND Psychiatry & Neurology Neuromuscular Medicine
DX: G70.00 Myasthenia gravis without (acute) exacerbation (principal); Z88.7 Allergy status to serum and vaccine; Z91.018 Allergy to other foods; Z91.040 Latex allergy status
CPT/HCPCS: 96365; 96366; J1459

== ENCOUNTER 2025-03-07 07:46 | Outpatient (CLI) | payer BC ==
[~2025-03-07] VITALS: Ht 152.4 cm; Wt 66.0 kg
[~2025-03-07 07:46] MED LIST changes: -ALBUTEROL SULFATE 2.5 MG/0.5 ML INH CONCENTRATE NEB SOLN INH PRN; -EPINEPHrine INJ 1 MG/ML 1ML AMP IM PRN; -diphenhydrAMINE 50 MG/ML VIAL IV PRN
[2025-03-07 07:50] VITALS: BP 112/69; O2SAT 100
[2025-03-07] MEDS ORDERED: diphenhydrAMINE 50 MG/ML VIAL IV PRN (08:00)
[2025-03-07] MEDS ORDERED: EPINEPHrine INJ 1 MG/ML 1ML AMP IM PRN (08:00)
[2025-03-07] MEDS ORDERED: ACETAMINOPHEN 650 MG PO ONE (08:00)
[2025-03-07] MEDS ORDERED: NS (Normal Saline) 0.9% 1,000 ML IV SCH (08:00)
[2025-03-07] MEDS ORDERED: ALBUTEROL SULFATE 2.5 MG/0.5 ML INH CONCENTRATE NEB SOLN INH PRN (08:00)
[2025-03-07] MEDS: IMMUNE GLOBULIN 10% 20 GM in IV 1 EA IV ONE (08:13)
[2025-03-07] MEDS: IMMUNE GLOBULIN 10% 5 GM in IV 1 EA IV ONE (08:14)
[2025-03-07 08:45] VITALS: BP 101/60; O2SAT 98
[2025-03-07 09:15] VITALS: BP 113/64; O2SAT 97
[2025-03-07 11:00] VITALS: BP 99/58; O2SAT 99
== END 2025-03-07 11:00 | disposition home or self-care (01) ==
LOC: M INFU 07:46
PROVIDERS: ATTEND Psychiatry & Neurology Neuromuscular Medicine
DX: G70.00 Myasthenia gravis without (acute) exacerbation (principal); Z91.040 Latex allergy status; Z91.018 Allergy to other foods; Z88.7 Allergy status to serum and vaccine
CPT/HCPCS: 96365; 96366; J1459

== ENCOUNTER 2025-03-08 07:47 | Outpatient (CLI) | payer BC ==
[~2025-03-08] VITALS: Ht 152.4 cm; Wt 66.0 kg
[2025-03-08 07:40] VITALS: BP 121/57; O2SAT 99
[~2025-03-08 07:47] MED LIST changes: +ALBUTEROL SULFATE 2.5 MG/0.5 ML INH CONCENTRATE NEB SOLN INH PRN; +EPINEPHrine INJ 1 MG/ML 1ML AMP IM PRN; +NS (Normal Saline) 0.9% 1,000 ML IV SCH; +diphenhydrAMINE 50 MG/ML VIAL IV PRN
[2025-03-08] MEDS: IMMUNE GLOBULIN 10% 20 GM in IV 1 EA IV ONE (08:17)
[2025-03-08] MEDS: IMMUNE GLOBULIN 10% 5 GM in IV 1 EA IV ONE (08:19)
[2025-03-08] MEDS: ACETAMINOPHEN 650 MG PO ONE (08:23)
[2025-03-08 08:45] VITALS: BP 118/70; O2SAT 99
[2025-03-08 10:50] VITALS: BP 113/61; O2SAT 97
== END 2025-03-08 11:00 ==
LOC: M INFU 07:47
PROVIDERS: ATTEND Psychiatry & Neurology Neuromuscular Medicine
DX: G70.00 Myasthenia gravis without (acute) exacerbation (principal); Z88.7 Allergy status to serum and vaccine; Z91.040 Latex allergy status; Z91.018 Allergy to other foods
CPT/HCPCS: 96365; 96366; J1459

== ENCOUNTER → 2025-04-18 | Outpatient (REF) | payer BC ==
[~2025-04-18] MED LIST changes: -ALBUTEROL SULFATE 2.5 MG/0.5 ML INH CONCENTRATE NEB SOLN INH PRN; -EPINEPHrine INJ 1 MG/ML 1ML AMP IM PRN; -NS (Normal Saline) 0.9% 1,000 ML IV SCH; -diphenhydrAMINE 50 MG/ML VIAL IV PRN
[2025-04-18 13:58] LABS: BASO # 0.0 10^3/uL (0.0-0.2); BASO % 0.9 % (0.0-1.0); EOS # 0.1 10^3/uL (0.0-0.5); EOS % 1.9 % (0.0-3.0); LYMPH # 1.3 10^3/uL (1.5-5.0); LYMPH % 29.4 % (24.0-44.0); MONO # 0.3 10^3/uL (0.0-0.8); MONO % 8.0 % (2.0-8.0); NEUTROPHILS # 2.5 10^3/uL (1.5-8.5); NEUTROPHILS % 59.6 % (36.0-66.0); PLATELET COUNT, AUTOMATED 234 10^3/uL (150-450)
[2025-04-18 14:04] LABS: ALT/SGPT 16 U/L (7.0-40); AST/SGOT 19 U/L (<34); CALCIUM LEVEL 9.3 MG/DL (8.5-10.1); CARBON DIOXIDE LEVEL 31 MMOL/L (20-31); CHLORIDE LEVEL 104 MMOL/L (98-107); CREATININE FOR GFR 0.74 MG/DL (0.55-1.30); GLOMERULAR FILTRATION RATE > 90.0 (>58); POTASSIUM SERUM 3.5 MMOL/L (3.5-5.1); SODIUM LEVEL 142 MMOL/L (136-145)
[2025-04-18 14:05] LABS: TOTAL 25(OH) VITAMIN D 36.8 NG/ML (20.0-100.0)
[2025-04-18 14:06] LABS: VITAMIN B12 LEVEL 824 PG/ML (211-911)
== END ==
LOC: M LABDRAWC 12:40
PROVIDERS: ATTEND Psychiatry & Neurology Neurology
DX: G70.00 Myasthenia gravis without (acute) exacerbation (principal); H05.409 Unspecified enophthalmos, unspecified eye